=== PATIENT | female | born 1935 | race Caucasian/White ===

== ENCOUNTER 2020-01-18 03:29 | Inpatient (IN) | payer BC, OTHER ==
[2020-01-18] VITALS (7 sets, daily range): BP systolic 104–138; BP diastolic 40–76
[~2020-01-18] VITALS: Ht 157.5 cm; Wt 51.0 kg
[2020-01-18] MEDS ORDERED: ONDANSETRON HCL 4 MG/2 ML VIAL IV ONE (04:15)
[2020-01-18] MEDS ORDERED: MORPHINE SULFATE 4 MG/ML SYR/VIAL IV ONE (04:15)
[2020-01-18] MEDS ORDERED: cefTRIAXone 1GM/50ML D5W 50 ML IV ONE (04:15)
[2020-01-18 04:30] LABS: Urine Amorphous Crystal FEW /hpf (None Seen); Urine Bacteria FEW /hpf (None Seen); Urine Blood 2+ /uL (Negative); Urine Mucus FEW (None Seen); Urine Specific Gravity 1.019 (1.001-1.035); Urine WBC 487 /hpf (0 - 5); Urine WBC Clumps PRESENT /hpf (None Seen)
[2020-01-18] MEDS ORDERED: IPRATROPIUM BROM 0.5 MG/2.5ML INH SOL NEB ONE ×2 (05:00→07:00)
[2020-01-18] MEDS ORDERED: ALBUTEROL SULF 2.5 MG/0.5ML(0.5%) NEB SOLN NEB ONE ×2 (05:00→07:00)
[2020-01-18 05:01] LABS: Basophils # (auto) 0 10 ^3/uL (0-0.2); Basophils % (auto) 0.3 % (0.0-2.0); Eosinophils # (auto) 0.1 10 ^3/uL (0-0.8); Eosinophils % (auto) 0.8 % (0.0-7.0); Hematocrit 30.6 % (36.0-46.0); Hemoglobin 10.4 g/dL (12.2-16.2); Lymphocytes # (auto) 0.7 10 ^3/uL (0.4-5.4); Lymphocytes % (auto) 7.3 % (10.0-50.0); Mean Corpuscular Volume 91.2 fL (80.0-100.0); Monocytes # (auto) 0.5 10 ^3/uL (0-1.3); Monocytes % (auto) 5.5 % (0.0-12.0); Neutrophils # (auto) 8.5 10 ^3/uL (1.6-8.6); Neutrophils % (auto) 86.1 % (37.0-80.0); Platelet Count (auto) 315 10^3/uL (140-450); Red Blood Cells 3.36 10^6/uL (4.0-5.20); Red Cell Distribution Width 13.6 % (11.8-14.3); White Blood Cell 9.8 10^3/uL (4.4-10.8)
[2020-01-18 05:19] LABS: Alanine Aminotransferase 23 U/L (13-56); Anion Gap 12 (5-15); Aspartate Aminotransferase 20 U/L (15-37); BUN/Creatinine Ratio 24.3; Blood Urea Nitrogen 17 mg/dL (7-18); Calcium 8.2 mg/dL (8.5-10.1); Carbon Dioxide 20 mmol/L (21-32); Chloride 92 mmol/L (98-107); GFR African American 102 mL/min; GFR Non-African American 85 mL/min; Glucose 121 mg/dL (74-106); Magnesium 1.9 mg/dL (1.6-2.6); Potassium 3.8 mmol/L (3.5-5.1); Sodium 124 mmol/L (136-145)
[2020-01-18 05:24] LABS: Alkaline Phosphatase 107 U/L (45-117); Bilirubin, Total 0.5 mg/dL (0.2-1.0); Total Protein 7.4 g/dL (6.4-8.2)
[2020-01-18] MEDS ORDERED: FUROSEMIDE 40 MG/4 ML VIAL IV ONE (06:00)
[2020-01-18] MEDS ORDERED: levoFLOXacin 750MG 150 ML IV ONE (06:15)
[2020-01-18] MEDS ORDERED: SUCCINYLCHOLINE CHLORIDE 20 MG/ML 10ML VIAL IV ONE (06:30)
[2020-01-18] MEDS ORDERED: ETOMIDATE (2MG/ML) 20ML VIAL IV ONE (06:30)
[2020-01-18] MEDS ORDERED: ALBUTEROL SULF 2.5 MG/0.5ML(0.5%) NEB SOLN ONE (06:47)
[2020-01-18] MEDS ORDERED: IPRATROPIUM BROM 0.5 MG/2.5ML INH SOL ONE (06:47)
[2020-01-18] MEDS ORDERED: methylPREDNISolone SOD SUCC 125 MG/2 ML VL IV ONE (07:00)
[2020-01-18] MEDS ORDERED: NITROGLYCERIN 0.4 MG SL TAB SL PRN (07:00)
[2020-01-18] MEDS ORDERED: MORPHINE SULF INJ 2 MG/ML SYRINGE 1ML IV PRN (07:00)
[2020-01-18] MEDS ORDERED: ONDANSETRON HCL 4 MG/2 ML VIAL IV PRN (07:00)
[2020-01-18] MEDS ORDERED: TEMAZEPAM 15 MG CAP PO PRN (07:00)
[2020-01-18] MEDS ORDERED: CHOLECALCIFEROL (VITD3) 1,000IU=25mCg TAB PO SCH (10:00)
[2020-01-18] MEDS ORDERED: AZITHROMYCIN 500MG/D5WorNS 250ml IV SCH (10:00)
[2020-01-18] MEDS ORDERED: ASCORBIC ACID 1,000 MG TAB PO SCH (10:00)
[2020-01-18] MEDS ORDERED: ZINC SULFATE 220mg CAP or TAB PO SCH (10:00)
[2020-01-18] MEDS: ASPirin 81 mg TAB PO SCH (10:10)
[2020-01-18] MEDS: AZITHROMYCIN 500MG/ 250ML 250 ML IV SCH (10:10)
[2020-01-18] MEDS: FAMOTIDINE 20 MG TAB PO SCH (10:10)
[2020-01-18] MEDS: ENOXAPARIN SOD 40 MG/0.4 ML SYRINGE SC SCH (10:15)
[2020-01-18 12:05] LABS: Magnesium 1.9 mg/dL (1.6-2.6)
[2020-01-18 12:13] LABS: CRP High Sensitivity 5.14 mg/dL (< 0.3)
[2020-01-18] MEDS ORDERED: ALBUTEROL SULF 2.5 MG/0.5ML(0.5%) NEB SOLN NEB PRN (13:30)
[2020-01-18] MEDS ORDERED: ALBUTEROL SULF HFA 90MCG INH 200DOSE IN SCH (14:00)
[2020-01-18] MEDS: ACETAMINOPHEN 325 MG TAB PO PRN (15:52)
[2020-01-18] MEDS ORDERED: SIMV-13 PO (17:33)
[2020-01-18] MEDS ORDERED: AMLO5TAB15 PO (17:33)
[2020-01-18] MEDS ORDERED: METO-159 PO (17:33)
[2020-01-18] MEDS ORDERED: IRBE300T26 PO (17:33)
[2020-01-18] MEDS ORDERED: DOXA4TAB5 PO (17:33)
[2020-01-18] MEDS ORDERED: FUROSEMIDE 20 MG/2 ML VIAL IV SCH (18:00)
[2020-01-18] MEDS: FUROSEMIDE 20 MG/2 ML VIAL IV SCH (18:15)
[2020-01-18] MEDS ORDERED: MORPHINE SULF INJ 2 MG/ML SYRINGE 1ML ONE (18:56)
[2020-01-18] MEDS ORDERED: MORPHINE SULF INJ 2 MG/ML SYRINGE 1ML IV ONE (19:00)
[2020-01-18] MEDS: IPRATROPIUM BROM 0.5 MG/2.5ML INH SOL NEB SCH (19:04)
[2020-01-18] MEDS: ALBUTEROL SULF 2.5 MG/0.5ML(0.5%) NEB SOLN NEB SCH (19:04)
[2020-01-19] VITALS: BP 117/47
[2020-01-19] MEDS: IPRATROPIUM BROM 0.5 MG/2.5ML INH SOL NEB SCH ×4 (00:26→18:51)
[2020-01-19] MEDS: ALBUTEROL SULF 2.5 MG/0.5ML(0.5%) NEB SOLN NEB SCH ×4 (00:26→18:52)
[2020-01-19] MEDS ORDERED: LORazepam 2MG/ML-1ML VIAL ONE (03:30)
[2020-01-19] MEDS ORDERED: LORazepam 2MG/ML-1ML VIAL IV PRN (03:45)
[2020-01-19 04:00] VITALS: BP 158/79
[2020-01-19] MEDS: FUROSEMIDE 20 MG/2 ML VIAL IV SCH ×2 (06:20→18:30)
[2020-01-19 06:25] LABS: Basophils # (auto) 0 10 ^3/uL (0-0.2); Basophils % (auto) 0.2 % (0.0-2.0); Eosinophils # (auto) 0 10 ^3/uL (0-0.8); Hematocrit 23.5 % (36.0-46.0); Hemoglobin 8.2 g/dL (12.2-16.2); Lymphocytes # (auto) 0.4 10 ^3/uL (0.4-5.4); Lymphocytes % (auto) 5.8 % (10.0-50.0); Mean Corpuscular Hemoglobin 31.4 pg (28.0-32.0); Mean Corpuscular Volume 89.6 fL (80.0-100.0); Monocytes # (auto) 0.2 10 ^3/uL (0-1.3); Monocytes % (auto) 3.6 % (0.0-12.0); Neutrophils % (auto) 90.4 % (37.0-80.0); Platelet Count (auto) 231 10^3/uL (140-450); Red Blood Cells 2.63 10^6/uL (4.0-5.20); Red Cell Distribution Width 13.6 % (11.8-14.3); White Blood Cell 6.6 10^3/uL (4.4-10.8)
[2020-01-19 06:49] LABS: Albumin 2.4 g/dL (3.4-5.0); BUN/Creatinine Ratio 18.8; Calcium 7.7 mg/dL (8.5-10.1); Potassium 3.8 mmol/L (3.5-5.1)
[2020-01-19 06:51] LABS: Bilirubin, Total 0.2 mg/dL (0.2-1.0)
[2020-01-19 07:53] VITALS: BP 120/49
[2020-01-19] MEDS: cefTRIAXone 1GM/50ML D5W 50 ML IV SCH (09:06)
[2020-01-19] MEDS: FAMOTIDINE 20 MG TAB PO SCH (10:02)
[2020-01-19] MEDS: ASPirin 81 mg TAB PO SCH (10:02)
[2020-01-19] MEDS: AZITHROMYCIN 500MG/ 250ML 250 ML IV SCH (10:03)
[2020-01-19] MEDS: ENOXAPARIN SOD 40 MG/0.4 ML SYRINGE SC SCH (10:03)
[2020-01-19] MEDS ORDERED: HYDROcodone-ACET 5/325MG TAB PO PRN (11:00)
[2020-01-19 12:00] VITALS: BP 121/46
[2020-01-19 16:00] VITALS: BP 121/44
[2020-01-19 20:00] VITALS: BP 126/51
[2020-01-20] VITALS: BP 135/58
[2020-01-20] MEDS: ACETAMINOPHEN 325 MG TAB PO PRN ×2 (01:55→22:27)
[2020-01-20 03:47] LABS: Basophils # (auto) 0 10 ^3/uL (0-0.2); Basophils % (auto) 0.2 % (0.0-2.0); Eosinophils # (auto) 0 10 ^3/uL (0-0.8); Eosinophils % (auto) 0.1 % (0.0-7.0); Hematocrit 26.5 % (36.0-46.0); Hemoglobin 9.1 g/dL (12.2-16.2); Lymphocytes # (auto) 1.1 10 ^3/uL (0.4-5.4); Lymphocytes % (auto) 7.6 % (10.0-50.0); Mean Corpuscular Hemoglobin 30.8 pg (28.0-32.0); Mean Corpuscular Hgb Conc. 34.3 g/dL (32.0-36.0); Mean Corpuscular Volume 89.9 fL (80.0-100.0); Monocytes # (auto) 1.3 10 ^3/uL (0-1.3); Monocytes % (auto) 9.1 % (0.0-12.0); Neutrophils # (auto) 12.2 10 ^3/uL (1.6-8.6); Platelet Count (auto) 337 10^3/uL (140-450); Red Blood Cells 2.95 10^6/uL (4.0-5.20); Red Cell Distribution Width 13.8 % (11.8-14.3); White Blood Cell 14.7 10^3/uL (4.4-10.8)
[2020-01-20 04:00] VITALS: BP 151/55
[2020-01-20 04:00] LABS: Potassium 3.4 mmol/L (3.5-5.1)
[2020-01-20 04:07] LABS: Albumin 2.6 g/dL (3.4-5.0); BUN/Creatinine Ratio 21.5; Bilirubin, Total 0.3 mg/dL (0.2-1.0); Total Protein 6.2 g/dL (6.4-8.2)
[2020-01-20] MEDS: IPRATROPIUM BROM 0.5 MG/2.5ML INH SOL NEB SCH ×4 (06:20→18:00)
[2020-01-20] MEDS: ALBUTEROL SULF 2.5 MG/0.5ML(0.5%) NEB SOLN NEB SCH ×4 (06:20→18:00)
[2020-01-20] MEDS: FUROSEMIDE 20 MG/2 ML VIAL IV SCH ×2 (06:45→18:34)
[2020-01-20 07:45] VITALS: BP 138/51
[2020-01-20] MEDS ORDERED: POTASSIUM CHL 20 Meq TABLET PO ONE (08:00)
[2020-01-20] MEDS: ADENOSINE 52 MG in GIVE UN-DILUTED 0 ML IV STA (08:26)
[2020-01-20] MEDS: ENOXAPARIN SOD 40 MG/0.4 ML SYRINGE SC SCH (10:00)
[2020-01-20] MEDS: FAMOTIDINE 20 MG TAB PO SCH (10:26)
[2020-01-20] MEDS: AZITHROMYCIN 500MG/ 250ML 250 ML IV SCH (10:26)
[2020-01-20] MEDS: cefTRIAXone 1GM/50ML D5W 50 ML IV SCH (10:26)
[2020-01-20] MEDS: ASPirin 81 mg TAB PO SCH (10:27)
[2020-01-20 11:40] VITALS: BP 137/49
[2020-01-20] MEDS: DOCUSATE SOD 100 MG CAP PO PRN (11:44)
[2020-01-20] MEDS ORDERED: ACET-1304 PO (13:19)
[2020-01-20] MEDS ORDERED: ASPI-498 PO (13:20)
[2020-01-20 17:00] VITALS: BP 161/69
[2020-01-20 22:00] VITALS: BP_SYST 143; BP_SYST 163; BP_DIAS 59; BP_DIAS 95
[2020-01-20] MEDS ORDERED: MAGNESIUM OXIDE 400 MG TAB PO ONE (22:00)
[2020-01-20] MEDS: METOPROLOL TARTRATE 25 MG TAB PO SCH (22:28)
[2020-01-21] VITALS (7 sets, daily range): BP systolic 117–164; BP diastolic 62–76
[2020-01-21] MEDS: ALBUTEROL SULF 2.5 MG/0.5ML(0.5%) NEB SOLN NEB SCH ×4 (00:41→18:52)
[2020-01-21] MEDS: IPRATROPIUM BROM 0.5 MG/2.5ML INH SOL NEB SCH ×4 (00:41→18:52)
[2020-01-21 05:26] LABS: Basophils # (auto) 0 10 ^3/uL (0-0.2); Basophils % (auto) 0.2 % (0.0-2.0); Eosinophils # (auto) 0.2 10 ^3/uL (0-0.8); Eosinophils % (auto) 2.3 % (0.0-7.0); Hematocrit 28.2 % (36.0-46.0); Hemoglobin 9.5 g/dL (12.2-16.2); Lymphocytes # (auto) 1.4 10 ^3/uL (0.4-5.4); Lymphocytes % (auto) 16.6 % (10.0-50.0); Mean Corpuscular Hemoglobin 30.5 pg (28.0-32.0); Mean Corpuscular Hgb Conc. 33.5 g/dL (32.0-36.0); Mean Corpuscular Volume 91.1 fL (80.0-100.0); Monocytes # (auto) 0.9 10 ^3/uL (0-1.3); Neutrophils # (auto) 6.1 10 ^3/uL (1.6-8.6); Neutrophils % (auto) 69.9 % (37.0-80.0); Nucleated Red Blood Cells % 0.1 %; Platelet Count (auto) 361 10^3/uL (140-450); Red Cell Distribution Width 13.9 % (11.8-14.3); White Blood Cell 8.6 10^3/uL (4.4-10.8)
[2020-01-21] MEDS: FUROSEMIDE 20 MG/2 ML VIAL IV SCH ×2 (05:37→17:56)
[2020-01-21 05:43] LABS: BUN/Creatinine Ratio 16.9; Calcium 8.4 mg/dL (8.5-10.1); Potassium 3.6 mmol/L (3.5-5.1)
[2020-01-21] MEDS: ADENOSINE 52 MG in GIVE UN-DILUTED 0 ML IV STA (10:36)
[2020-01-21] MEDS: cefTRIAXone 1GM/50ML D5W 50 ML IV SCH (11:40)
[2020-01-21] MEDS: ASPirin 81 mg TAB PO SCH (11:41)
[2020-01-21] MEDS: FAMOTIDINE 20 MG TAB PO SCH (11:41)
[2020-01-21] MEDS: ENOXAPARIN SOD 40 MG/0.4 ML SYRINGE SC SCH (11:41)
[2020-01-21] MEDS: METOPROLOL TARTRATE 25 MG TAB PO SCH ×2 (11:46→21:49)
[2020-01-21 14:27] LABS: INR 1.13 (0.9-1.15); Partial Thromboplastin Time 32.5 sec (23.64-32.05)
[2020-01-21] MEDS ORDERED: POTASSIUM EFFERVESENT TAB 25 MEQ PO ONE (16:00)
[2020-01-21] MEDS ORDERED: levoFLOXacin 500 MG TAB PO ONE (16:00)
[2020-01-22] MEDS: ALBUTEROL SULF 2.5 MG/0.5ML(0.5%) NEB SOLN NEB SCH ×4 (00:32→18:14)
[2020-01-22] MEDS: IPRATROPIUM BROM 0.5 MG/2.5ML INH SOL NEB SCH ×4 (00:32→18:14)
[2020-01-22 05:00] VITALS: BP 135/67
[2020-01-22] MEDS: FUROSEMIDE 20 MG/2 ML VIAL IV SCH (05:36)
[2020-01-22 05:58] LABS: Basophils # (auto) 0 10 ^3/uL (0-0.2); Basophils % (auto) 0.4 % (0.0-2.0); Eosinophils # (auto) 0.2 10 ^3/uL (0-0.8); Eosinophils % (auto) 2.4 % (0.0-7.0); Hematocrit 30.3 % (36.0-46.0); Hemoglobin 10.1 g/dL (12.2-16.2); Lymphocytes # (auto) 1.2 10 ^3/uL (0.4-5.4); Lymphocytes % (auto) 12.6 % (10.0-50.0); Mean Corpuscular Hemoglobin 30.1 pg (28.0-32.0); Mean Corpuscular Hgb Conc. 33.4 g/dL (32.0-36.0); Mean Corpuscular Volume 90.1 fL (80.0-100.0); Monocytes # (auto) 0.7 10 ^3/uL (0-1.3); Neutrophils # (auto) 7.1 10 ^3/uL (1.6-8.6); Neutrophils % (auto) 76.6 % (37.0-80.0); Nucleated Red Blood Cells % 0.1 %; Platelet Count (auto) 385 10^3/uL (140-450); Red Blood Cells 3.36 10^6/uL (4.0-5.20); White Blood Cell 9.2 10^3/uL (4.4-10.8)
[2020-01-22 06:17] LABS: Albumin 2.6 g/dL (3.4-5.0); Calcium 8.3 mg/dL (8.5-10.1); Potassium 3.5 mmol/L (3.5-5.1)
[2020-01-22 06:23] LABS: Bilirubin, Total 0.4 mg/dL (0.2-1.0); Total Protein 6.5 g/dL (6.4-8.2)
[2020-01-22 06:47] LABS: BUN/Creatinine Ratio 16.8
[2020-01-22 08:26] VITALS: BP 133/63
[2020-01-22] MEDS: FAMOTIDINE 20 MG TAB PO SCH (09:21)
[2020-01-22] MEDS: METOPROLOL TARTRATE 25 MG TAB PO SCH ×2 (09:21→22:21)
[2020-01-22] MEDS: ASPirin 81 mg TAB PO SCH (09:22)
[2020-01-22] MEDS: ENOXAPARIN SOD 40 MG/0.4 ML SYRINGE SC SCH (09:22)
[2020-01-22] MEDS: POTASSIUM EFFERVESENT TAB 25 MEQ PO SCH (09:22)
[2020-01-22] MEDS ORDERED: levoFLOXacin 500 MG TAB PO SCH (10:00)
[2020-01-22 12:56] VITALS: BP 130/56
[2020-01-22 17:00] VITALS: BP 145/56
[2020-01-22] MEDS ORDERED: FUROSEMIDE 100 MG/10ML VIAL IV SCH (18:00)
[2020-01-22 22:00] VITALS: BP 135/65
[2020-01-22] MEDS: DOCUSATE SOD 100 MG CAP PO PRN (22:21)
[2020-01-23] MEDS: IPRATROPIUM BROM 0.5 MG/2.5ML INH SOL NEB SCH ×3 (00:06→11:29)
[2020-01-23] MEDS: ALBUTEROL SULF 2.5 MG/0.5ML(0.5%) NEB SOLN NEB SCH ×3 (00:06→11:29)
[2020-01-23 05:32] LABS: Basophils # (auto) 0 10 ^3/uL (0-0.2); Basophils % (auto) 0.3 % (0.0-2.0); Eosinophils # (auto) 0.3 10 ^3/uL (0-0.8); Eosinophils % (auto) 3.7 % (0.0-7.0); Hematocrit 29.3 % (36.0-46.0); Hemoglobin 9.9 g/dL (12.2-16.2); Lymphocytes # (auto) 1.2 10 ^3/uL (0.4-5.4); Mean Corpuscular Hemoglobin 30.6 pg (28.0-32.0); Mean Corpuscular Hgb Conc. 33.9 g/dL (32.0-36.0); Mean Corpuscular Volume 90.1 fL (80.0-100.0); Monocytes # (auto) 0.8 10 ^3/uL (0-1.3); Monocytes % (auto) 10.4 % (0.0-12.0); Neutrophils # (auto) 5.7 10 ^3/uL (1.6-8.6); Neutrophils % (auto) 70.6 % (37.0-80.0); Nucleated Red Blood Cells % 0.1 %; Platelet Count (auto) 353 10^3/uL (140-450); Red Blood Cells 3.25 10^6/uL (4.0-5.20); Red Cell Distribution Width 13.9 % (11.8-14.3); White Blood Cell 8.1 10^3/uL (4.4-10.8)
[2020-01-23 05:57] LABS: BUN/Creatinine Ratio 20.2; Calcium 8.3 mg/dL (8.5-10.1); Potassium 3.5 mmol/L (3.5-5.1)
[2020-01-23 06:23] LABS: Urine Bacteria FEW /hpf (None Seen); Urine Blood Negative /uL (Negative); Urine Mucus FEW (None Seen); Urine Specific Gravity 1.009 (1.001-1.035); Urine WBC 8 /hpf (0 - 5)
[2020-01-23 09:00] VITALS: BP 134/62
[2020-01-23] MEDS: POTASSIUM EFFERVESENT TAB 25 MEQ PO SCH (10:00)
[2020-01-23] MEDS ORDERED: levoFLOXacin 250 MG TAB PO SCH (10:00)
[2020-01-23] MEDS: ENOXAPARIN SOD 40 MG/0.4 ML SYRINGE SC SCH (10:00)
[2020-01-23] MEDS ORDERED: FUROSEMIDE 100 MG/10ML VIAL IV SCH (10:00)
[2020-01-23] MEDS: ASPirin 81 mg TAB PO SCH (10:06)
[2020-01-23] MEDS: METOPROLOL TARTRATE 25 MG TAB PO SCH (10:08)
[2020-01-23] MEDS: FAMOTIDINE 20 MG TAB PO SCH (10:09)
[2020-01-23 13:00] VITALS: BP 143/77
[2020-01-23 14:34] VITALS: BP 143/77
== END 2020-01-23 18:40 | disposition home or self-care (01) | DRG 698 ==
LOC: EDBD 03:29 → ER 03:29 → TELE 03:30 → DOU IN ICU 09:17 → TELE-CENTR 01-20 15:20
PROVIDERS: ADMIT Nurse Practitioner; ATTEND Internal Medicine Nephrology
PROC: 0T2BX0Z Change Drainage Device in Bladder, External Approach (ICD-10-PCS; principal; 2020-01-18)
DX: T83.021A Displacement of indwelling urethral catheter, initial encounter (principal); J96.21 Acute and chronic respiratory failure with hypoxia; I50.43 Acute on chronic combined systolic (congestive) and diastolic (congestive) heart failure; G92 Toxic encephalopathy; J15.6 Pneumonia due to other Gram-negative bacteria; N13.6 Pyonephrosis; E87.1 Hypo-osmolality and hyponatremia; E44.0 Moderate protein-calorie malnutrition; Y73.8 Miscellaneous gastroenterology and urology devices associated with adverse incidents, not elsewhere classified; I11.0 Hypertensive heart disease with heart failure; Z95.1 Presence of aortocoronary bypass graft; I25.10 Atherosclerotic heart disease of native coronary artery without angina pectoris; E78.5 Hyperlipidemia, unspecified; D63.8 Anemia in other chronic diseases classified elsewhere; E87.6 Hypokalemia; M19.90 Unspecified osteoarthritis, unspecified site; I95.9 Hypotension, unspecified; Z68.20 Body mass index [BMI] 20.0-20.9, adult; Z82.49 Family history of ischemic heart disease and other diseases of the circulatory system; Z83.3 Family history of diabetes mellitus; Z83.42 Family history of familial hypercholesterolemia; Z82.0 Family history of epilepsy and other diseases of the nervous system; Z79.899 Other long term (current) drug therapy; Z03.818 Encounter for observation for suspected exposure to other biological agents ruled out
CPT/HCPCS: 36415; 36600; 71045; 74176; 78452; 80048; 80053; 81001; 82728; 82805; 83605; 83615; 83735; 83880; 84132; 84443; 84484; 85025; 85379; 85610; 85730; 86141; 86850; 86900; 86901; 87040; 87070; 87086; 87449; 87804; 87880; 93005; 93017; 93306; 93970; 94640; G0378; J0153; J0330; J0696; J1956; J2405

== ENCOUNTER 2021-10-26 15:40 | Inpatient (IN) | payer BC ==
[~2021-10-26] VITALS: Ht 167.6 cm; Wt 81.0 kg
[~2021-10-26 15:40] MED LIST: ACET-1304 PO; AMLO-489 PO; ASPI-498 PO; DOXA4TAB6 PO; IRBE300T79 PO; SIMV-13 PO
[2021-10-26 16:53] LABS: Basophils # (auto) 0 10 ^3/uL (0-0.2); Basophils % (auto) 0.3 % (0.0-2.0); Eosinophils # (auto) 0 10 ^3/uL (0-0.8); Eosinophils % (auto) 0.2 % (0.0-7.0); Hematocrit 35.9 % (36.0-46.0); Hemoglobin 11.9 g/dL (12.2-16.2); Lymphocytes # (auto) 0.9 10 ^3/uL (0.4-5.4); Lymphocytes % (auto) 8.1 % (10.0-50.0); Mean Corpuscular Hemoglobin 30.8 pg (28.0-32.0); Mean Corpuscular Hgb Conc. 33.1 g/dL (32.0-36.0); Mean Corpuscular Volume 93.1 fL (80.0-100.0); Monocytes # (auto) 0.9 10 ^3/uL (0-1.3); Monocytes % (auto) 7.7 % (0.0-12.0); Neutrophils # (auto) 9.5 10 ^3/uL (1.6-8.6); Neutrophils % (auto) 83.7 % (37.0-80.0); Nucleated Red Blood Cells % 0.3 %; Red Blood Cells 3.85 10^6/uL (4.0-5.20); Red Cell Distribution Width 13.6 % (11.8-14.3); White Blood Cell 11.4 10^3/uL (4.4-10.8)
[2021-10-26 17:15] LABS: Albumin 3.2 g/dL (3.4-5.0); Calcium 8.4 mg/dL (8.5-10.1); Potassium 3.2 mmol/L (3.5-5.1)
[2021-10-26 17:23] LABS: BUN/Creatinine Ratio 30.8; Bilirubin, Total 1.2 mg/dL (0.2-1.0); Total Protein 7.6 g/dL (6.4-8.2)
[2021-10-26] MEDS ORDERED: ASPirin 81 mg TAB PO ONE (20:00)
[2021-10-26] MEDS ORDERED: cefTRIAXone 1GM/50ML D5W 50 ML IV ONE (20:00)
[2021-10-26] MEDS ORDERED: FUROSEMIDE 20 MG/2 ML VIAL IV ONE (20:15)
[2021-10-26] MEDS ORDERED: AZITHROMYCIN 500MG/ 250ML 250 ML IV ONE (21:00)
[2021-10-26] MEDS ORDERED: ACETAMINOPHEN 325 MG TAB PO PRN (22:15)
[2021-10-26] MEDS ORDERED: NITROGLYCERIN 0.4 MG SL TAB SL PRN (22:15)
[2021-10-26] MEDS ORDERED: ONDANSETRON HCL 4 MG/2 ML VIAL IV PRN (22:15)
[2021-10-26] MEDS ORDERED: FUROSEMIDE 40 MG/4 ML VIAL IV ONE (22:15)
[2021-10-26] MEDS ORDERED: hydrALAZINE HCL 10 MG TAB PO PRN (22:15)
[2021-10-26] MEDS ORDERED: POTASSIUM CHL 20 Meq TABLET PO ONE (22:15)
[2021-10-26] MEDS ORDERED: HYDROcodone-ACET 5/325MG TAB PO PRN (22:15)
[2021-10-26] MEDS ORDERED: LORazepam 2MG/ML-1ML VIAL ONE (22:48)
[2021-10-26] MEDS ORDERED: LORazepam 2MG/ML-1ML VIAL IV ONE (23:00)
[2021-10-26] MEDS: DexAMETHasone SOD PHOS 10MG/1ML VIAL INJ IV SCH (23:46)
[2021-10-27 08:39] LABS: Basophils # (auto) 0 10 ^3/uL (0-0.2); Basophils % (auto) 0.1 % (0.0-2.0); Eosinophils # (auto) 0 10 ^3/uL (0-0.8); Hematocrit 33.8 % (36.0-46.0); Hemoglobin 11.5 g/dL (12.2-16.2); Lymphocytes # (auto) 0.2 10 ^3/uL (0.4-5.4); Lymphocytes % (auto) 2.1 % (10.0-50.0); Mean Corpuscular Hemoglobin 31.4 pg (28.0-32.0); Mean Corpuscular Volume 92.4 fL (80.0-100.0); Monocytes # (auto) 0.1 10 ^3/uL (0-1.3); Monocytes % (auto) 1.2 % (0.0-12.0); Neutrophils # (auto) 9.8 10 ^3/uL (1.6-8.6); Neutrophils % (auto) 96.6 % (37.0-80.0); Nucleated Red Blood Cells % 0.5 %; Red Blood Cells 3.66 10^6/uL (4.0-5.20); Red Cell Distribution Width 13.3 % (11.8-14.3); White Blood Cell 10.2 10^3/uL (4.4-10.8)
[2021-10-27 08:56] LABS: Potassium 3.4 mmol/L (3.5-5.1)
[2021-10-27 09:09] LABS: BUN/Creatinine Ratio 37.8; Calcium 8.4 mg/dL (8.5-10.1)
[2021-10-27] MEDS ORDERED: LORazepam 2MG/ML-1ML VIAL IV ONE (09:25)
[2021-10-27] MEDS ORDERED: ENOXAPARIN SOD 80 MG/0.8ML SYRINGE SC SCH (10:00)
[2021-10-27] MEDS: ZINC SULFATE 220mg CAP or TAB PO SCH (10:00)
[2021-10-27] MEDS: ASCORBIC ACID 500 MG TAB PO SCH (10:00)
[2021-10-27] MEDS: FAMOTIDINE 20 MG TAB PO SCH (10:00)
[2021-10-27] MEDS: ASPirin-EC 81 mg tab PO SCH (10:00)
[2021-10-27] MEDS: CHOLECALCIFEROL (VITD3) 2,000 UNIT CAP/TAB PO SCH (10:00)
[2021-10-27] MEDS: ENOXAPARIN SOD 80 MG/0.8ML SYRINGE SC SCH ×2 (11:38→21:59)
[2021-10-27] MEDS: POTASSIUM CHL 10MEQ/50ML 50 ML IV SCH ×3 (15:00→16:05)
[2021-10-27] MEDS: cefTRIAXone 1GM/50ML D5W 50 ML IV SCH (21:00)
[2021-10-27] MEDS: DexAMETHasone SOD PHOS 10MG/1ML VIAL INJ IV SCH (21:59)
[2021-10-27] MEDS: ATORVASTATIN 20 MG TAB PO SCH (21:59)
[2021-10-27] MEDS: MORPHINE SULFATE INJECTION 2 MG/ML SYRG IV PRN (22:25)
[2021-10-27] MEDS: AZITHROMYCIN 500MG/ 250ML 250 ML IV SCH (22:25)
[2021-10-28] VITALS (19 sets, daily range): BP systolic 96–160; BP diastolic 52–92
[2021-10-28] MEDS: MORPHINE SULFATE INJECTION 2 MG/ML SYRG IV PRN (02:52)
[2021-10-28 03:56] LABS: Basophils # (auto) 0 10 ^3/uL (0-0.2); Basophils % (auto) 0.3 % (0.0-2.0); Eosinophils # (auto) 0 10 ^3/uL (0-0.8); Eosinophils % (auto) 0.1 % (0.0-7.0); Hematocrit 34.4 % (36.0-46.0); Hemoglobin 11.1 g/dL (12.2-16.2); Lymphocytes # (auto) 0.3 10 ^3/uL (0.4-5.4); Mean Corpuscular Hemoglobin 30.1 pg (28.0-32.0); Mean Corpuscular Hgb Conc. 32.2 g/dL (32.0-36.0); Mean Corpuscular Volume 93.6 fL (80.0-100.0); Monocytes # (auto) 0.2 10 ^3/uL (0-1.3); Monocytes % (auto) 1.9 % (0.0-12.0); Neutrophils % (auto) 95.7 % (37.0-80.0); Nucleated Red Blood Cells % 0.2 %; Red Blood Cells 3.67 10^6/uL (4.0-5.20); Red Cell Distribution Width 13.5 % (11.8-14.3); White Blood Cell 12.6 10^3/uL (4.4-10.8)
[2021-10-28 04:39] LABS: Calcium 7.9 mg/dL (8.5-10.1); Potassium 3.4 mmol/L (3.5-5.1)
[2021-10-28 04:41] LABS: BUN/Creatinine Ratio 34.3
[2021-10-28] MEDS: ZINC SULFATE 220mg CAP or TAB PO SCH (10:00)
[2021-10-28] MEDS: FUROSEMIDE 40 MG/4 ML VIAL IV SCH ×2 (10:00→18:00)
[2021-10-28] MEDS: FAMOTIDINE 20 MG TAB PO SCH (10:00)
[2021-10-28] MEDS: ASCORBIC ACID 500 MG TAB PO SCH (10:00)
[2021-10-28] MEDS: ASPirin-EC 81 mg tab PO SCH (10:00)
[2021-10-28] MEDS: ENOXAPARIN SOD 80 MG/0.8ML SYRINGE SC SCH ×2 (10:00→21:54)
[2021-10-28] MEDS: CHOLECALCIFEROL (VITD3) 2,000 UNIT CAP/TAB PO SCH (10:00)
[2021-10-28] MEDS ORDERED: HALOPERIDOL LACTATE 5 MG/ML INJ VIAL ONE (15:14)
[2021-10-28] MEDS ORDERED: HALOPERIDOL LACTATE 5 MG/ML INJ VIAL IM ONE (15:15)
[2021-10-28] MEDS: cefTRIAXone 1GM/50ML D5W 50 ML IV SCH (21:00)
[2021-10-28] MEDS: DexAMETHasone SOD PHOS 10MG/1ML VIAL INJ IV SCH (21:51)
[2021-10-28] MEDS: AZITHROMYCIN 500MG/ 250ML 250 ML IV SCH (21:52)
[2021-10-28] MEDS: ATORVASTATIN 20 MG TAB PO SCH (21:53)
[2021-10-28] MEDS: HALOPERIDOL LACTATE 5 MG/ML INJ VIAL IM PRN (21:58)
[2021-10-28] MEDS: LORazepam 2MG/ML-1ML VIAL IV PRN (21:59)
[2021-10-29] VITALS (20 sets, daily range): BP systolic 99–160; BP diastolic 52–112
[2021-10-29 05:12] LABS: Basophils # (auto) 0 10 ^3/uL (0-0.2); Basophils % (auto) 0.1 % (0.0-2.0); Eosinophils # (auto) 0 10 ^3/uL (0-0.8); Hematocrit 33.4 % (36.0-46.0); Hemoglobin 11.1 g/dL (12.2-16.2); Lymphocytes # (auto) 0.2 10 ^3/uL (0.4-5.4); Mean Corpuscular Hemoglobin 31.1 pg (28.0-32.0); Mean Corpuscular Hgb Conc. 33.3 g/dL (32.0-36.0); Mean Corpuscular Volume 93.4 fL (80.0-100.0); Monocytes # (auto) 0.1 10 ^3/uL (0-1.3); Monocytes % (auto) 0.9 % (0.0-12.0); Neutrophils # (auto) 11.4 10 ^3/uL (1.6-8.6); Nucleated Red Blood Cells % 0.2 %; Red Blood Cells 3.58 10^6/uL (4.0-5.20); Red Cell Distribution Width 13.5 % (11.8-14.3); White Blood Cell 11.8 10^3/uL (4.4-10.8)
[2021-10-29] MEDS: FUROSEMIDE 40 MG/4 ML VIAL IV SCH ×3 (05:25→18:00)
[2021-10-29 05:38] LABS: Potassium 3.6 mmol/L (3.5-5.1)
[2021-10-29 05:46] LABS: BUN/Creatinine Ratio 26.7; Calcium 8.2 mg/dL (8.5-10.1)
[2021-10-29] MEDS: ZINC SULFATE 220mg CAP or TAB PO SCH (10:00)
[2021-10-29] MEDS: CHOLECALCIFEROL (VITD3) 2,000 UNIT CAP/TAB PO SCH (10:00)
[2021-10-29] MEDS: FAMOTIDINE 20 MG TAB PO SCH (10:00)
[2021-10-29] MEDS: ASPirin-EC 81 mg tab PO SCH (10:00)
[2021-10-29] MEDS: ASCORBIC ACID 500 MG TAB PO SCH (10:00)
[2021-10-29] MEDS ORDERED: FUROSEMIDE 40 MG/4 ML VIAL ONE (10:16)
[2021-10-29] MEDS: ENOXAPARIN SOD 80 MG/0.8ML SYRINGE SC SCH ×2 (10:18→21:00)
[2021-10-29 16:41] LABS: Urine Bacteria FEW /hpf (None Seen); Urine Blood TRACE /uL (Negative); Urine Mucus FEW (None Seen); Urine Specific Gravity 1.011 (1.001-1.035); Urine WBC 1 /hpf (0 - 5)
[2021-10-29] MEDS: LORazepam 2MG/ML-1ML VIAL IV PRN ×2 (20:04→22:21)
[2021-10-29] MEDS: HALOPERIDOL LACTATE 5 MG/ML INJ VIAL IM PRN (20:04)
[2021-10-29] MEDS: cefTRIAXone 1GM/50ML D5W 50 ML IV SCH (20:59)
[2021-10-29] MEDS: ATORVASTATIN 20 MG TAB PO SCH (20:59)
[2021-10-29] MEDS: METOPROLOL TARTRATE 25 MG TAB PO SCH (20:59)
[2021-10-29] MEDS: AZITHROMYCIN 500MG/ 250ML 250 ML IV SCH (22:20)
[2021-10-30] VITALS (17 sets, daily range): BP systolic 124–155; BP diastolic 50–97
[2021-10-30 05:04] LABS: Basophils # (auto) 0.2 10 ^3/uL (0-0.2); Basophils % (auto) 1.1 % (0.0-2.0); Eosinophils # (auto) 0 10 ^3/uL (0-0.8); Eosinophils % (auto) 0.1 % (0.0-7.0); Hematocrit 37.5 % (36.0-46.0); Hemoglobin 12.1 g/dL (12.2-16.2); Lymphocytes # (auto) 0.5 10 ^3/uL (0.4-5.4); Lymphocytes % (auto) 3.3 % (10.0-50.0); Mean Corpuscular Hemoglobin 30.1 pg (28.0-32.0); Mean Corpuscular Hgb Conc. 32.4 g/dL (32.0-36.0); Mean Corpuscular Volume 93.2 fL (80.0-100.0); Monocytes # (auto) 0.8 10 ^3/uL (0-1.3); Monocytes % (auto) 5.6 % (0.0-12.0); Neutrophils # (auto) 12.9 10 ^3/uL (1.6-8.6); Neutrophils % (auto) 89.9 % (37.0-80.0); Nucleated Red Blood Cells % 0.2 %; Red Blood Cells 4.02 10^6/uL (4.0-5.20); Red Cell Distribution Width 13.9 % (11.8-14.3); White Blood Cell 14.4 10^3/uL (4.4-10.8)
[2021-10-30 05:10] LABS: BUN/Creatinine Ratio 19.7; Calcium 8.2 mg/dL (8.5-10.1); Potassium 3.2 mmol/L (3.5-5.1)
[2021-10-30] MEDS: FUROSEMIDE 40 MG/4 ML VIAL IV SCH (06:10)
[2021-10-30] MEDS: FAMOTIDINE 20 MG TAB PO SCH (09:50)
[2021-10-30] MEDS: ENOXAPARIN SOD 80 MG/0.8ML SYRINGE SC SCH (09:50)
[2021-10-30] MEDS: CHOLECALCIFEROL (VITD3) 2,000 UNIT CAP/TAB PO SCH (10:00)
[2021-10-30] MEDS: ASPirin-EC 81 mg tab PO SCH (10:00)
[2021-10-30] MEDS: ASCORBIC ACID 500 MG TAB PO SCH (10:00)
[2021-10-30] MEDS: ZINC SULFATE 220mg CAP or TAB PO SCH (10:00)
[2021-10-30] MEDS: METOPROLOL TARTRATE 25 MG TAB PO SCH ×2 (10:04→22:00)
[2021-10-30] MEDS ORDERED: POTASSIUM EFFERVESENT TAB 25 MEQ PO ONE ×2 (11:15→20:00)
[2021-10-30] MEDS ORDERED: FURO1TAB31 PO (14:23)
[2021-10-30] MEDS ORDERED: MET25T PO (14:23)
[2021-10-30] MEDS ORDERED: POTA-180 PO (14:23)
[2021-10-30] MEDS: HALOPERIDOL LACTATE 5 MG/ML INJ VIAL IM PRN (18:42)
[2021-10-30] MEDS: LORazepam 2MG/ML-1ML VIAL IV PRN (18:42)
[2021-10-30] MEDS: cefTRIAXone 1GM/50ML D5W 50 ML IV SCH (21:20)
[2021-10-30] MEDS: AZITHROMYCIN 500MG/ 250ML 250 ML IV SCH (22:00)
[2021-10-30] MEDS: ATORVASTATIN 20 MG TAB PO SCH (22:00)
[2021-10-30] MEDS ORDERED: MORPHINE SULFATE INJECTION 2 MG/ML SYRG ONE (22:26)
[2021-10-30] MEDS: MORPHINE SULFATE INJECTION 2 MG/ML SYRG IV PRN (22:30)
[2021-10-31] VITALS (16 sets, daily range): BP systolic 118–148; BP diastolic 51–76
[2021-10-31] MEDS: LORazepam 2MG/ML-1ML VIAL IV PRN ×2 (01:11→09:46)
[2021-10-31] MEDS: HALOPERIDOL LACTATE 5 MG/ML INJ VIAL IM PRN (03:04)
[2021-10-31] MEDS: MORPHINE SULFATE INJECTION 2 MG/ML SYRG IV PRN ×2 (05:13→14:01)
[2021-10-31] MEDS: ZINC SULFATE 220mg CAP or TAB PO SCH (10:00)
[2021-10-31] MEDS: ASPirin-EC 81 mg tab PO SCH (10:00)
[2021-10-31] MEDS: FAMOTIDINE 20 MG TAB PO SCH (10:00)
[2021-10-31] MEDS ORDERED: ENOXAPARIN SOD 40 MG/0.4 ML SYRINGE SC SCH (10:00)
[2021-10-31] MEDS: CHOLECALCIFEROL (VITD3) 2,000 UNIT CAP/TAB PO SCH (10:00)
[2021-10-31] MEDS: ASCORBIC ACID 500 MG TAB PO SCH (10:00)
[2021-10-31] MEDS ORDERED: POTASSIUM EFFERVESENT TAB 25 MEQ GT SCH (10:00)
[2021-10-31] MEDS: METOPROLOL TARTRATE 25 MG TAB PO SCH (10:00)
== END 2021-10-31 15:24 | disposition hospice, home (50) | DRG 871 ==
LOC: EDBD 15:40 → ER 15:54 → TELE 22:08 → CATH ICU 10-27 23:46
PROVIDERS: ADMIT Nurse Practitioner Family; ATTEND Nurse Practitioner Family
DX: A41.9 Sepsis, unspecified organism (principal); J18.9 Pneumonia, unspecified organism; N17.0 Acute kidney failure with tubular necrosis; J96.01 Acute respiratory failure with hypoxia; I21.4 Non-ST elevation (NSTEMI) myocardial infarction; J96.02 Acute respiratory failure with hypercapnia; I50.33 Acute on chronic diastolic (congestive) heart failure; I13.0 Hypertensive heart and chronic kidney disease with heart failure and stage 1 through stage 4 chronic kidney disease, or unspecified chronic kidney disease; J44.1 Chronic obstructive pulmonary disease with (acute) exacerbation; N39.0 Urinary tract infection, site not specified; J44.0 Chronic obstructive pulmonary disease with (acute) lower respiratory infection; E78.5 Hyperlipidemia, unspecified; F02.80 Dementia in other diseases classified elsewhere, unspecified severity, without behavioral disturbance, psychotic disturbance, mood disturbance, and anxiety; G30.9 Alzheimer's disease, unspecified; N18.32 Chronic kidney disease, stage 3b; I48.0 Paroxysmal atrial fibrillation; Z20.822 Contact with and (suspected) exposure to COVID-19; D64.9 Anemia, unspecified; I25.10 Atherosclerotic heart disease of native coronary artery without angina pectoris; E87.6 Hypokalemia; T50.1X5A Adverse effect of loop [high-ceiling] diuretics, initial encounter; M19.90 Unspecified osteoarthritis, unspecified site; Z95.1 Presence of aortocoronary bypass graft; Y92.89 Other specified places as the place of occurrence of the external cause; Z82.0 Family history of epilepsy and other diseases of the nervous system; I25.2 Old myocardial infarction; Z82.49 Family history of ischemic heart disease and other diseases of the circulatory system; Z83.3 Family history of diabetes mellitus; Z79.899 Other long term (current) drug therapy
CPT/HCPCS: 36415; 36600; 71045; 76775; 80048; 80053; 80061; 81001; 82805; 83880; 84484; 85025; 87086; 87426; 87804; 93005; 93306; 93970; 96365; 96367; 96375; G0378; J0696; J1100